=== PATIENT | female | born 1960 | race Caucasian/White ===

== ENCOUNTER 2021-03-20 13:53 | Emergency (ER) | payer OTHER ==
[~2021-03-20] VITALS: Ht 172.7 cm; Wt 76.2 kg
[~2021-03-20 13:53] MED LIST: ACETAMINOPHEN PO; ALPR0.254 PO; AMIT25TA9 PO; ASPI81CH43 PO; BACL10TA PO; BENZ100C19 PO; BUSP15TA60 PO; FAMO20TA10 PO; FLU05NSL; FLUO40CA PO; GABA-339 PO; IPRASOL41 NEB; LORA-622 PO; METH-532 PO; MOME100A INH; MON10T PO; OMEP20TA44 PO; OXY10CRT PO; OXYCODONE PO
[2021-03-20] MEDS ORDERED: methylPREDNISolone SOD SUCC 125 MG/2 ML VL IV ONE ×2 (14:15→21:30)
[2021-03-20] MEDS ORDERED: ALBUTEROL SULF 2.5 MG/0.5ML(0.5%) NEB SOLN HHN ONE ×2 (14:15→21:30)
[2021-03-20] MEDS ORDERED: IPRATROPIUM BROM 0.5 MG/2.5ML INH SOL HHN ONE ×2 (14:15→21:30)
[2021-03-20 14:23] LABS: Basophils # (auto) 0 10 ^3/uL (0-0.2); Basophils % (auto) 0.2 % (0.0-2.0); Eosinophils # (auto) 0 10 ^3/uL (0-0.8); Hematocrit 35.4 % (36.0-46.0); Hemoglobin 12.1 g/dL (12.2-16.2); Lymphocytes # (auto) 1.8 10 ^3/uL (0.4-5.4); Mean Corpuscular Hemoglobin 28.7 pg (28.0-32.0); Mean Corpuscular Hgb Conc. 34.2 g/dL (32.0-36.0); Mean Corpuscular Volume 83.8 fL (80.0-100.0); Monocytes # (auto) 0.3 10 ^3/uL (0-1.3); Monocytes % (auto) 3.5 % (0.0-12.0); Neutrophils # (auto) 6.4 10 ^3/uL (1.6-8.6); Neutrophils % (auto) 75.3 % (37.0-80.0); Nucleated Red Blood Cells % 0.1 %; Platelet Count (auto) 276 10^3/uL (140-450); Red Blood Cells 4.22 10^6/uL (4.0-5.20); Red Cell Distribution Width 15.1 % (11.8-14.3); White Blood Cell 8.5 10^3/uL (4.4-10.8)
[2021-03-20 14:44] LABS: Albumin 3.7 g/dL (3.4-5.0); Calcium 9.4 mg/dL (8.5-10.1); Potassium 3.4 mmol/L (3.5-5.1)
[2021-03-20 14:48] LABS: BUN/Creatinine Ratio 14.1; Bilirubin, Total 0.3 mg/dL (0.2-1.0); Total Protein 7.7 g/dL (6.4-8.2)
[2021-03-20] MEDS ORDERED: FLUT1AER7 INH (15:06)
[2021-03-20] MEDS ORDERED: ATOR40TA52 PO (15:06)
[2021-03-20] MEDS ORDERED: BUSP30TA21 PO (15:06)
[2021-03-20] MEDS ORDERED: ALBU108A5 INH (15:06)
[2021-03-20] MEDS ORDERED: OXYC-963 (15:06)
[2021-03-20] MEDS ORDERED: TOPI50TA53 PO (15:06)
[2021-03-20] MEDS ORDERED: LEVO112T4 PO (15:06)
[2021-03-20] MEDS ORDERED: HYDR-3682 PO (15:06)
[2021-03-20 15:46] LABS: Lactic Acid w/Reflex 3.2 mmol/L (0.4-2.0)
[2021-03-20] MEDS ORDERED: ACETAMINOPHEN 325 MG TAB PO ONE ×2 (16:50→17:00)
[2021-03-20 22:04] VITALS: BP 116/56
== END 2021-03-20 22:35 | disposition short-term general hospital (02) ==
LOC: ER 13:53
DX: J45.902 Unspecified asthma with status asthmaticus (principal); Z90.49 Acquired absence of other specified parts of digestive tract; Z90.710 Acquired absence of both cervix and uterus; Z90.89 Acquired absence of other organs; Z20.822 Contact with and (suspected) exposure to COVID-19
CPT/HCPCS: 36415; 71045; 80053; 83605; 83880; 85025; 85379; 87040; 87426; 93005; 94640; 94644; 96374; 99285; J2930; J7644